=== PATIENT | female | born 1965 | race Caucasian/White ===

== ENCOUNTER 2020-09-09 14:38 | Inpatient (IN) | payer MEDICARE, MEDICAID ==
[~2020-09-09] VITALS: Ht 175.3 cm; Wt 95.3 kg
[2020-09-09] MEDS ORDERED: IPRATROPIUM BROMIDE (0.02%) 0.5MG/2.5ML NEB HHN STA (14:57)
[2020-09-09] MEDS ORDERED: METHYLPREDNISOLONE SOD SUCC 125 MG/2 ML VIAL IV STA (14:57)
[2020-09-09] MEDS: ALBUTEROL (0.083%) 2.5MG/3ML NEB HHN SCH ×3 (15:14→16:28)
[2020-09-09 15:26] LABS: BASOPHILS % 1.2 % (0.0-2.0); EOSINOPHILS % 5.2 % (0.0-5.0); HEMATOCRIT. 37.6 % (36.0-48.0); HEMOGLOBIN. 12.4 g/dL (12.0-16.0); LYMPHOCYTES % 49.9 % (20.0-50.0); MEAN CORPUSCULAR HEMOGLOBIN 28.8 pg (28.0-32.0); MEAN CORPUSCULAR VOLUME 86.9 fL (81.0-99.0); MEAN PLATELET VOLUME 8.2 fl (7.4-10.4); MONOCYTES % 8.9 % (2.0-8.0); NEUTROPHILS % 34.8 % (40.0-76.0); PLATELET 212 x1000/uL (130-400); RED BLOOD CELL COUNT 4.32 mill/uL (4.2-5.4); RED CELL DISTRIBUTION WIDTH 17.6 % (11.6-14.6)
[2020-09-09 15:34] LABS: CHLORIDE 117 mEq/L (98-107)
[2020-09-09] MEDS ORDERED: CEFTRIAXONE 1 G PREMIX 50 ML IV ONE (16:15)
[2020-09-09] MEDS ORDERED: POTASSIUM CHLORIDE 20MEQ TABLET SR PO SCH (16:15)
[2020-09-09] MEDS ORDERED: AZITHROMYCIN 500 MG in DEXT 5% WATER 250 ML IV ONE (17:00)
[2020-09-09] MEDS ORDERED: MAGNESIUM/ALUMINUM HYDROXIDE/SIMETHICONE 30ML UDC PO PRN (17:15)
[2020-09-09] MEDS ORDERED: DOCUSATE SODIUM 100MG CAPSULE PO PRN (17:15)
[2020-09-09] MEDS ORDERED: ACETAMINOPHEN 325MG TABLET PO PRN ×2 (17:15)
[2020-09-09] MEDS ORDERED: CLONIDINE 0.1MG TABLET PO PRN (17:15)
[2020-09-09] MEDS ORDERED: IPRATROPIUM/ALBUTEROL 0.5-3(2.5)MG/3ML NEB NEB PRN (17:15)
[2020-09-09] MEDS ORDERED: NITROGLYCERIN 0.4MG TABLET SL SL PRN (17:15)
[2020-09-09] MEDS ORDERED: DEXTROSE 50% WATER 50ML SYRINGE IV PRN (17:15)
[2020-09-09] MEDS ORDERED: GUAIFENESIN 200MG/10ML SUGAR FREE UDC PO PRN (17:15)
[2020-09-09] MEDS ORDERED: ONDANSETRON HCL 4MG/2ML INJ IV PRN (17:15)
[2020-09-09] MEDS ORDERED: POTASSIUM CHLORIDE 20MEQ TABLET SR PO NR (17:32)
[2020-09-09] MEDS: INSULIN LISPRO 100 UNITS/ML SUBCUT SCH ×2 (17:50→21:00)
[2020-09-09] MEDS: BLOOD SUGAR DIAGNOSTIC STRIP TEST SCH ×2 (17:50→20:58)
[2020-09-09] MEDS: GUAIFENESIN/DM 600MG/30MG ER TAB 12HR PO SCH (17:59)
[2020-09-09 18:00] LABS: T4 FREE 0.87 ng/dL (0.76-1.46)
[2020-09-09] MEDS: ENOXAPARIN 40MG/0.4ML SYR SUBCUT SCH (18:00)
[2020-09-09 18:27] LABS: VITAMIN B12 SERUM 235 pg/mL (211-911)
[2020-09-09] MEDS: DILTIAZEM HCL 60MG TABLET PO SCH (18:39)
[2020-09-09 19:51] LABS: *COCAINE SCREEN URINE NEGATIVE (NEGATIVE); METHADONE URINE SCREEN NEGATIVE (NEGATIVE); OPIATES URINE SCREEN NEGATIVE (NEGATIVE)
[2020-09-09 19:52] LABS: *AMPHETAMINES SCREEN URINE NEGATIVE (NEGATIVE); *BARBITURATES SCREEN URINE NEGATIVE (NEGATIVE); *BENZODIAZEPINES SCREEN URINE NEGATIVE (NEGATIVE); CANNABINOID URINE SCREEN NEGATIVE (NEGATIVE); PHENCYCLIDINE URINE SCREEN NEGATIVE (NEGATIVE)
[2020-09-09 19:53] LABS: D-DIMER 0.63 mg/L FEU (<0.50); INR 1.1; PROTHROMBIN TIME 11.4 sec (9.6-11.0)
[2020-09-09] MEDS ORDERED: ZOLPIDEM TARTRATE 5MG TABLET PO PRN (20:00)
[2020-09-09] MEDS: KETOROLAC 15MG/ML VIAL IV PRN (20:57)
[2020-09-09] MEDS: FAMOTIDINE 20MG TABLET PO SCH (20:58)
[2020-09-09] MEDS: ASCORBIC ACID 500 MG TABLET PO SCH (20:58)
[2020-09-09 22:00] VITALS: BP 134/92
[2020-09-10] VITALS: BP 130/89
[2020-09-10 00:44] LABS: CREATINE KINASE 54 IU/L (26-192)
[2020-09-10 00:45] LABS: CREATINE KINASE MB FRACTION 1.4 ng/mL (0.5-3.6)
[2020-09-10] MEDS: DILTIAZEM HCL 60MG TABLET PO SCH ×3 (00:48→19:06)
[2020-09-10] MEDS: IPRATROPIUM/ALBUTEROL 0.5-3(2.5)MG/3ML NEB HHN SCH ×6 (01:13→21:20)
[2020-09-10 04:00] VITALS: BP 133/83
[2020-09-10] MEDS: BLOOD SUGAR DIAGNOSTIC STRIP TEST SCH ×4 (05:56→21:00)
[2020-09-10] MEDS: INSULIN LISPRO 100 UNITS/ML SUBCUT SCH ×4 (05:56→21:00)
[2020-09-10] MEDS: GUAIFENESIN/DM 600MG/30MG ER TAB 12HR PO SCH ×2 (06:09→18:51)
[2020-09-10 07:51] LABS: BASOPHILS % 0.3 % (0.0-2.0); HEMATOCRIT. 35.5 % (36.0-48.0); HEMOGLOBIN. 11.9 g/dL (12.0-16.0); LYMPHOCYTES % 13.7 % (20.0-50.0); MEAN CORPUSCULAR HEMOGLOBIN 29.2 pg (28.0-32.0); MEAN CORPUSCULAR VOLUME 86.8 fL (81.0-99.0); MEAN PLATELET VOLUME 8.2 fl (7.4-10.4); MONOCYTES % 8.3 % (2.0-8.0); NEUTROPHILS % 77.7 % (40.0-76.0); PLATELET 191 x1000/uL (130-400); RED BLOOD CELL COUNT 4.09 mill/uL (4.2-5.4)
[2020-09-10 07:57] LABS: CHLORIDE 114 mEq/L (98-107)
[2020-09-10 08:00] VITALS: BP 130/82
[2020-09-10 08:08] LABS: CREATINE KINASE 46 IU/L (26-192)
[2020-09-10 08:16] LABS: CREATINE KINASE MB FRACTION < 1.0 ng/mL (0.5-3.6)
[2020-09-10] MEDS: ZINC SULFATE 220 MG ( 50 ) CAPSULE PO SCH (10:02)
[2020-09-10] MEDS: CHOLECALCIFEROL (D3) 1000 UNIT TABLET PO SCH (10:02)
[2020-09-10] MEDS: ASPIRIN 325MG EC TABLET PO SCH (10:03)
[2020-09-10] MEDS: ASCORBIC ACID 500 MG TABLET PO SCH ×2 (10:03→22:07)
[2020-09-10] MEDS: FAMOTIDINE 20MG TABLET PO SCH ×2 (10:03→22:07)
[2020-09-10] MEDS: KETOROLAC 15MG/ML VIAL IV PRN (10:34)
[2020-09-10] MEDS ORDERED: IPRATROPIUM/ALBUTEROL 0.5-3(2.5)MG/3ML NEB NEB PRN (11:00)
[2020-09-10 12:00] VITALS: BP 124/80
[2020-09-10] MEDS ORDERED: PNEUMOCOCCAL 23-VAL P-SAC VAC 0.5 ML IM ONE (12:00)
[2020-09-10] MEDS: BUDESONIDE 0.5MG/2ML NEB HHN SCH ×2 (12:04→21:20)
[2020-09-10] MEDS ORDERED: MAGNESIUM 2 G PREMIX 50 ML IV NR (13:00)
[2020-09-10] MEDS ORDERED: CEFTRIAXONE 1,000 MG in DEXTROSE 5% WATER 50 ML IV SCH ×2 (13:00→16:00)
[2020-09-10] MEDS ORDERED: AZITHROMYCIN 500 MG in DEXT 5% WATER 250 ML IV SCH ×2 (14:00→17:00)
[2020-09-10 16:00] VITALS: BP 110/75
[2020-09-10] MEDS: ENOXAPARIN 40MG/0.4ML SYR SUBCUT SCH (18:51)
[2020-09-10] MEDS: FUROSEMIDE 40MG TABLET PO SCH (18:51)
[2020-09-10 20:00] VITALS: BP 128/80
[2020-09-11] VITALS: BP 138/81
[2020-09-11] MEDS: DILTIAZEM HCL 60MG TABLET PO SCH ×4 (00:30→18:00)
[2020-09-11] MEDS: IPRATROPIUM/ALBUTEROL 0.5-3(2.5)MG/3ML NEB HHN SCH ×6 (01:12→20:49)
[2020-09-11 04:00] VITALS: BP 129/68
[2020-09-11] MEDS: INSULIN LISPRO 100 UNITS/ML SUBCUT SCH ×4 (06:06→20:19)
[2020-09-11] MEDS: BLOOD SUGAR DIAGNOSTIC STRIP TEST SCH ×4 (06:06→20:19)
[2020-09-11] MEDS: GUAIFENESIN/DM 600MG/30MG ER TAB 12HR PO SCH ×2 (06:09→17:59)
[2020-09-11] MEDS: FUROSEMIDE 40MG TABLET PO SCH ×2 (06:09→17:59)
[2020-09-11] MEDS ORDERED: FURO80TA3 MT (06:24)
[2020-09-11] MEDS ORDERED: SPIR100T5 MT (06:24)
[2020-09-11] MEDS ORDERED: LEVO50TA8 MT (06:24)
[2020-09-11] MEDS ORDERED: LACT10SO6 MT (06:24)
[2020-09-11] MEDS ORDERED: GABA-532 MT (06:24)
[2020-09-11] MEDS ORDERED: APIX5TAB MT (06:24)
[2020-09-11] MEDS ORDERED: MIDO10TA MT (06:24)
[2020-09-11] MEDS ORDERED: PANT40TA51 MT (06:24)
[2020-09-11] MEDS ORDERED: DULO60CA64 MT (06:24)
[2020-09-11] MEDS ORDERED: OXYB5TAB17 PO (06:35)
[2020-09-11] MEDS ORDERED: CYCL5TAB MT (06:35)
[2020-09-11] MEDS ORDERED: TRAM50TA3 MT (06:35)
[2020-09-11] MEDS ORDERED: DOCU100C57 PO (06:35)
[2020-09-11] MEDS ORDERED: ONDA4TAB50 MT (06:35)
[2020-09-11] MEDS ORDERED: HYDR-4009 MT (06:35)
[2020-09-11] MEDS ORDERED: CHOL100044 (06:35)
[2020-09-11] MEDS ORDERED: POTA20TA82 MT (06:35)
[2020-09-11] MEDS ORDERED: MULT-1203 MT (06:35)
[2020-09-11] MEDS ORDERED: RIFA550T MT (06:35)
[2020-09-11] MEDS ORDERED: MAGN200T4 MT (06:35)
[2020-09-11] MEDS ORDERED: SUMA25TA9 PO (06:35)
[2020-09-11 08:00] VITALS: BP 114/74
[2020-09-11] MEDS: ASPIRIN 325MG EC TABLET PO SCH (08:44)
[2020-09-11] MEDS: ASCORBIC ACID 500 MG TABLET PO SCH ×2 (08:44→20:19)
[2020-09-11] MEDS: CHOLECALCIFEROL (D3) 1000 UNIT TABLET PO SCH (08:45)
[2020-09-11] MEDS: FAMOTIDINE 20MG TABLET PO SCH ×2 (08:45→20:19)
[2020-09-11] MEDS: ZINC SULFATE 220 MG ( 50 ) CAPSULE PO SCH (08:45)
[2020-09-11] MEDS: BUDESONIDE 0.5MG/2ML NEB HHN SCH ×2 (09:32→20:49)
[2020-09-11 12:00] VITALS: BP 126/62
[2020-09-11] MEDS: KETOROLAC 15MG/ML VIAL IV PRN (12:24)
[2020-09-11] MEDS: METHYLPREDNISOLONE SOD SUCC 40 MG/ML VIAL IV SCH ×2 (12:31→20:19)
[2020-09-11] MEDS ORDERED: CEFTRIAXONE 1,000 MG in DEXTROSE 5% WATER 50 ML IV SCH (13:00)
[2020-09-11] MEDS ORDERED: AZITHROMYCIN 500MG in DEXTROSE 5% WATER 250ML IV SCH (14:00)
[2020-09-11 16:00] VITALS: BP 108/61
[2020-09-11] MEDS: ENOXAPARIN 40MG/0.4ML SYR SUBCUT SCH (17:59)
[2020-09-12] VITALS: BP 137/59
[2020-09-12] MEDS: DILTIAZEM HCL 60MG TABLET PO SCH ×2 (00:57→06:29)
[2020-09-12] MEDS: IPRATROPIUM/ALBUTEROL 0.5-3(2.5)MG/3ML NEB HHN SCH ×3 (01:02→08:57)
[2020-09-12 04:00] VITALS: BP 121/58
[2020-09-12] MEDS: FUROSEMIDE 40MG TABLET PO SCH (06:28)
[2020-09-12] MEDS: GUAIFENESIN/DM 600MG/30MG ER TAB 12HR PO SCH (06:28)
[2020-09-12] MEDS: BLOOD SUGAR DIAGNOSTIC STRIP TEST SCH (06:33)
[2020-09-12] MEDS: INSULIN LISPRO 100 UNITS/ML SUBCUT SCH (06:33)
[2020-09-12 07:53] VITALS: BP 125/67
[2020-09-12] MEDS: KETOROLAC 15MG/ML VIAL IV PRN (07:58)
[2020-09-12] MEDS: ASPIRIN 325MG EC TABLET PO SCH (08:37)
[2020-09-12] MEDS: CHOLECALCIFEROL (D3) 1000 UNIT TABLET PO SCH (08:37)
[2020-09-12] MEDS: ASCORBIC ACID 500 MG TABLET PO SCH (08:37)
[2020-09-12] MEDS: ZINC SULFATE 220 MG ( 50 ) CAPSULE PO SCH (08:37)
[2020-09-12] MEDS: METHYLPREDNISOLONE SOD SUCC 40 MG/ML VIAL IV SCH (08:37)
[2020-09-12] MEDS: FAMOTIDINE 20MG TABLET PO SCH (08:37)
[2020-09-12] MEDS: BUDESONIDE 0.5MG/2ML NEB HHN SCH (08:57)
[2020-09-12 10:37] VITALS: BP 141/78
== END 2020-09-12 13:15 | disposition home or self-care (01) | DRG 193 ==
LOC: EDSEX 14:38 → ER 14:38 → EDBEDREQ 16:23 → EDBEDREQTM 16:23 → 8WST 17:12 → SUPCPDRO 17:12 → EDBEDREQ 17:21 → ENRESERV 21:20
PROVIDERS: ADMIT Internal Medicine; ATTEND Internal Medicine
DX: J18.9 Pneumonia, unspecified organism (principal); J96.20 Acute and chronic respiratory failure, unspecified whether with hypoxia or hypercapnia; J44.1 Chronic obstructive pulmonary disease with (acute) exacerbation; E87.1 Hypo-osmolality and hyponatremia; E44.0 Moderate protein-calorie malnutrition; I50.42 Chronic combined systolic (congestive) and diastolic (congestive) heart failure; J44.0 Chronic obstructive pulmonary disease with (acute) lower respiratory infection; I11.0 Hypertensive heart disease with heart failure; E87.6 Hypokalemia; M06.9 Rheumatoid arthritis, unspecified; M19.90 Unspecified osteoarthritis, unspecified site; Z99.81 Dependence on supplemental oxygen; K70.30 Alcoholic cirrhosis of liver without ascites; E11.9 Type 2 diabetes mellitus without complications; Z86.16 Personal history of COVID-19; F10.21 Alcohol dependence, in remission; E83.42 Hypomagnesemia; Z87.891 Personal history of nicotine dependence; Z86.73 Personal history of transient ischemic attack (TIA), and cerebral infarction without residual deficits; Z98.84 Bariatric surgery status; Z68.31 Body mass index [BMI] 31.0-31.9, adult
CPT/HCPCS: 36415; 71045; 80053; 80305; 80320; 82550; 82553; 82607; 82962; 83036; 83540; 83550; 83735; 83880; 84145; 84439; 84443; 84484; 85025; 85379; 93005; 93306; 93970; 94640; 99285; C1893; J0456; J0696; J1650; J1885; J2920; J2930; J3475; J7060; J7626; G0480

== ENCOUNTER 2020-11-21 14:35 | Inpatient (IN) | payer MEDICARE, MEDICAID ==
[~2020-11-21] VITALS: Ht 175.3 cm; Wt 93.9 kg
[~2020-11-21 14:35] MED LIST: APIX5TAB MT; CHOL100044; CYCL5TAB MT; DOCU100C57 PO; DULO60CA64 MT; FERR236T3 PO; FOLI0.8C PO; FURO80TA3 MT; GABA-532 MT; HYDR-4009 MT; LACT10SO6 MT; LEVO50TA8 MT; MAGN200T4 MT; MIDO10TA MT; MULT-1203 MT; ONDA4TAB50 MT; OXYB5TAB17 PO; PANT40TA51 MT; POTA20TA82 MT; RIFA550T MT; SPIR100T5 MT; SUMA25TA9 PO; TRAM50TA3 MT
[2020-11-21] MEDS ORDERED: BENZONATATE 100MG CAPSULE PO PRN (15:45)
[2020-11-21] MEDS ORDERED: CEFAZOLIN 1000MG PREMIX 50 ML IV SCH ×2 (15:45→17:00)
[2020-11-21] MEDS ORDERED: HYDROCODONE/ACETAMINOPHEN 10/325MG TABLET PO PRN (15:45)
[2020-11-21] MEDS ORDERED: ACETAMINOPHEN 325MG TABLET PO PRN (15:45)
[2020-11-21] MEDS ORDERED: FAMOTIDINE 20MG TABLET PO SCH (17:00)
[2020-11-21 17:33] VITALS: BP 95/59
[2020-11-21] MEDS ORDERED: ACETAMINOPHEN 325MG TABLET PO ONE (18:00)
[2020-11-21] MEDS: FAMOTIDINE 20MG TABLET PO SCH (18:34)
[2020-11-21 18:38] VITALS: BP 95/59
[2020-11-21 20:00] VITALS: BP 119/56
[2020-11-21] MEDS ORDERED: METOPROLOL TARTRATE 25MG TABLET PO SCH (21:00)
[2020-11-21] MEDS ORDERED: ENOXAPARIN 100MG/ML SYR SUBCUT SCH (21:00)
[2020-11-21] MEDS: METOPROLOL TARTRATE 25MG TABLET PO SCH (21:00)
[2020-11-21] MEDS ORDERED: POTASSIUM CHLORIDE 20MEQ TABLET SR PO SCH (21:00)
[2020-11-21] MEDS ORDERED: NYSTATIN POWDER 15GM TOP SCH (21:00)
[2020-11-21] MEDS: NYSTATIN POWDER 15GM TOP SCH (21:57)
[2020-11-21] MEDS: LACTULOSE 20G/30ML UDC PO SCH (21:58)
[2020-11-21] MEDS ORDERED: LACTULOSE 20G/30ML UDC PO SCH (22:00)
[2020-11-21] MEDS: ENOXAPARIN 100MG/ML SYR SUBCUT SCH (22:00)
[2020-11-21] MEDS ORDERED: GABAPENTIN 300MG CAPSULE PO SCH (22:00)
[2020-11-21] MEDS ORDERED: CYCLOBENZAPRINE 10MG TABLET PO SCH (22:00)
[2020-11-21] MEDS: GABAPENTIN 300MG CAPSULE PO SCH (22:01)
[2020-11-21] MEDS: CYCLOBENZAPRINE 10MG TABLET PO SCH (22:01)
[2020-11-21] MEDS: POTASSIUM CHLORIDE 20MEQ TABLET SR PO SCH (22:02)
[2020-11-22] MEDS: LACTULOSE 20G/30ML UDC PO SCH ×3 (06:00→22:00)
[2020-11-22] MEDS: LEVOTHYROXINE SODIUM 50MCG TABLET PO SCH (06:07)
[2020-11-22] MEDS: HYDROCODONE/ACETAMINOPHEN 10/325MG TABLET PO PRN ×3 (06:07→19:08)
[2020-11-22] MEDS: GABAPENTIN 300MG CAPSULE PO SCH ×3 (06:07→21:34)
[2020-11-22] MEDS: CYCLOBENZAPRINE 10MG TABLET PO SCH ×3 (06:07→21:34)
[2020-11-22] MEDS: FAMOTIDINE 20MG TABLET PO SCH ×2 (06:08→16:57)
[2020-11-22] MEDS ORDERED: LEVOTHYROXINE SODIUM 50MCG TABLET PO SCH (07:00)
[2020-11-22 07:59] VITALS: BP 121/70
[2020-11-22] MEDS: FOLIC ACID/VITAMIN B COMP W-C TABLET PO SCH (08:14)
[2020-11-22] MEDS: METOPROLOL TARTRATE 25MG TABLET PO SCH ×2 (08:15→21:00)
[2020-11-22] MEDS: SPIRONOLACTONE 50MG TABLET PO SCH (08:15)
[2020-11-22] MEDS: CHOLECALCIFEROL (D3) 1000 UNIT TABLET PO SCH (08:15)
[2020-11-22] MEDS: OXYBUTYNIN CHLORIDE 5MG TABLET PO SCH (08:15)
[2020-11-22] MEDS: MAGNESIUM OXIDE 400MG TABLET PO SCH (08:15)
[2020-11-22] MEDS: POTASSIUM CHLORIDE 20MEQ TABLET SR PO SCH ×2 (08:16→21:34)
[2020-11-22] MEDS: DULOXETINE HCL 60MG DR CAPSULE PO SCH (08:16)
[2020-11-22] MEDS: FERROUS SULFATE 325MG TABLET PO SCH (08:16)
[2020-11-22] MEDS: ENOXAPARIN 100MG/ML SYR SUBCUT SCH ×2 (08:17→21:36)
[2020-11-22] MEDS: NYSTATIN POWDER 15GM TOP SCH ×2 (08:18→21:36)
[2020-11-22] MEDS ORDERED: CHOLECALCIFEROL (D3) 1000 UNIT TABLET PO SCH (09:00)
[2020-11-22] MEDS ORDERED: SPIRONOLACTONE 50MG TABLET PO SCH (09:00)
[2020-11-22] MEDS ORDERED: FOLIC ACID/VITAMIN B COMP W-C TABLET PO SCH (09:00)
[2020-11-22] MEDS ORDERED: FERROUS SULFATE 325MG TABLET PO SCH (09:00)
[2020-11-22] MEDS ORDERED: OXYBUTYNIN CHLORIDE 5MG TABLET PO SCH (09:00)
[2020-11-22] MEDS ORDERED: DULOXETINE HCL 60MG DR CAPSULE PO SCH (09:00)
[2020-11-22] MEDS ORDERED: MAGNESIUM OXIDE 400MG TABLET PO SCH (09:00)
[2020-11-22] MEDS: DOCUSATE SODIUM 100MG CAPSULE PO SCH (16:57)
[2020-11-22] MEDS ORDERED: DOCUSATE SODIUM 100MG CAPSULE PO SCH (18:00)
[2020-11-22 20:00] VITALS: BP 108/62
[2020-11-23] MEDS: LACTULOSE 20G/30ML UDC PO SCH ×3 (05:17→22:00)
[2020-11-23] MEDS: GABAPENTIN 300MG CAPSULE PO SCH ×3 (06:12→21:56)
[2020-11-23] MEDS: LEVOTHYROXINE SODIUM 50MCG TABLET PO SCH (06:12)
[2020-11-23] MEDS: FAMOTIDINE 20MG TABLET PO SCH ×2 (06:12→18:17)
[2020-11-23] MEDS: CYCLOBENZAPRINE 10MG TABLET PO SCH ×3 (06:13→21:56)
[2020-11-23] MEDS: HYDROCODONE/ACETAMINOPHEN 10/325MG TABLET PO PRN ×2 (06:14→11:49)
[2020-11-23 06:36] LABS: CHLORIDE 100 mEq/L (98-107)
[2020-11-23 06:44] LABS: BASOPHILS % 1.1 % (0.0-2.0); EOSINOPHILS % 4.2 % (0.0-5.0); HEMATOCRIT. 38.8 % (36.0-48.0); HEMOGLOBIN. 13.1 g/dL (12.0-16.0); LYMPHOCYTES % 25.4 % (20.0-50.0); MEAN CORPUSCULAR HEMOGLOBIN 31.4 pg (28.0-32.0); MEAN PLATELET VOLUME 8.6 fl (7.4-10.4); MONOCYTES % 13.7 % (2.0-8.0); NEUTROPHILS % 55.6 % (40.0-76.0); PLATELET 357 x1000/uL (130-400); RED BLOOD CELL COUNT 4.17 mill/uL (4.2-5.4); RED CELL DISTRIBUTION WIDTH 15.3 % (11.6-14.6)
[2020-11-23 08:23] VITALS: BP 109/54
[2020-11-23] MEDS: FOLIC ACID/VITAMIN B COMP W-C TABLET PO SCH (08:50)
[2020-11-23] MEDS: CHOLECALCIFEROL (D3) 1000 UNIT TABLET PO SCH (08:50)
[2020-11-23] MEDS: FERROUS SULFATE 325MG TABLET PO SCH (08:50)
[2020-11-23] MEDS: MAGNESIUM OXIDE 400MG TABLET PO SCH (08:51)
[2020-11-23] MEDS: POTASSIUM CHLORIDE 20MEQ TABLET SR PO SCH (08:51)
[2020-11-23] MEDS: DULOXETINE HCL 60MG DR CAPSULE PO SCH (08:53)
[2020-11-23] MEDS: SPIRONOLACTONE 50MG TABLET PO SCH (08:56)
[2020-11-23] MEDS: OXYBUTYNIN CHLORIDE 5MG TABLET PO SCH (08:56)
[2020-11-23] MEDS: ENOXAPARIN 100MG/ML SYR SUBCUT SCH ×2 (08:57→21:56)
[2020-11-23] MEDS: METOPROLOL TARTRATE 25MG TABLET PO SCH ×2 (09:00→21:00)
[2020-11-23] MEDS: NYSTATIN POWDER 15GM TOP SCH ×2 (14:25→21:56)
[2020-11-23] MEDS: DOCUSATE SODIUM 100MG CAPSULE PO SCH (18:17)
[2020-11-23 20:00] VITALS: BP 98/65
[2020-11-24] MEDS: LACTULOSE 20G/30ML UDC PO SCH (06:00)
[2020-11-24] MEDS: LEVOTHYROXINE SODIUM 50MCG TABLET PO SCH (06:06)
[2020-11-24] MEDS: GABAPENTIN 300MG CAPSULE PO SCH ×3 (06:08→21:13)
[2020-11-24] MEDS: HYDROCODONE/ACETAMINOPHEN 10/325MG TABLET PO PRN ×3 (06:08→15:33)
[2020-11-24] MEDS: FAMOTIDINE 20MG TABLET PO SCH ×2 (06:08→17:19)
[2020-11-24] MEDS: CYCLOBENZAPRINE 10MG TABLET PO SCH ×3 (06:08→21:13)
[2020-11-24 06:22] LABS: CHLORIDE 99 mEq/L (98-107)
[2020-11-24 06:47] LABS: BASOPHILS % 1.1 % (0.0-2.0); EOSINOPHILS % 4.8 % (0.0-5.0); HEMATOCRIT. 37.5 % (36.0-48.0); HEMOGLOBIN. 12.5 g/dL (12.0-16.0); LYMPHOCYTES % 30.5 % (20.0-50.0); MEAN CORPUSCULAR HEMOGLOBIN 30.7 pg (28.0-32.0); MEAN CORPUSCULAR VOLUME 92.4 fL (81.0-99.0); MONOCYTES % 9.8 % (2.0-8.0); NEUTROPHILS % 53.8 % (40.0-76.0); PLATELET 391 x1000/uL (130-400); RED BLOOD CELL COUNT 4.06 mill/uL (4.2-5.4); RED CELL DISTRIBUTION WIDTH 15.2 % (11.6-14.6)
[2020-11-24 07:52] VITALS: BP 104/59
[2020-11-24] MEDS: FOLIC ACID/VITAMIN B COMP W-C TABLET PO SCH (08:21)
[2020-11-24] MEDS: FERROUS SULFATE 325MG TABLET PO SCH (08:21)
[2020-11-24] MEDS: CHOLECALCIFEROL (D3) 1000 UNIT TABLET PO SCH (08:21)
[2020-11-24] MEDS: MAGNESIUM OXIDE 400MG TABLET PO SCH (08:22)
[2020-11-24] MEDS: OXYBUTYNIN CHLORIDE 5MG TABLET PO SCH (08:22)
[2020-11-24] MEDS: DULOXETINE HCL 60MG DR CAPSULE PO SCH (08:22)
[2020-11-24] MEDS: METOPROLOL TARTRATE 25MG TABLET PO SCH ×2 (08:22→21:00)
[2020-11-24] MEDS: ENOXAPARIN 100MG/ML SYR SUBCUT SCH ×2 (08:23→21:16)
[2020-11-24] MEDS: NYSTATIN POWDER 15GM TOP SCH ×2 (09:00→21:13)
[2020-11-24] MEDS: SPIRONOLACTONE 25MG TABLET PO SCH (10:54)
[2020-11-24] MEDS ORDERED: LACTULOSE 20G/30ML UDC PO PRN (13:15)
[2020-11-24] MEDS: DOCUSATE SODIUM 100MG CAPSULE PO SCH (17:20)
[2020-11-24 20:00] VITALS: BP 108/71
[2020-11-25 06:24] LABS: BASOPHILS % 1.3 % (0.0-2.0); EOSINOPHILS % 5.8 % (0.0-5.0); LYMPHOCYTES % 30.8 % (20.0-50.0); MEAN CORPUSCULAR HEMOGLOBIN 31.6 pg (28.0-32.0); MEAN CORPUSCULAR VOLUME 91.9 fL (81.0-99.0); MEAN PLATELET VOLUME 8.6 fl (7.4-10.4); MONOCYTES % 10.8 % (2.0-8.0); NEUTROPHILS % 51.3 % (40.0-76.0); PLATELET 384 x1000/uL (130-400); RED BLOOD CELL COUNT 3.81 mill/uL (4.2-5.4); RED CELL DISTRIBUTION WIDTH 15.4 % (11.6-14.6)
[2020-11-25] MEDS: FAMOTIDINE 20MG TABLET PO SCH ×2 (06:38→17:23)
[2020-11-25] MEDS: GABAPENTIN 300MG CAPSULE PO SCH ×3 (06:38→20:55)
[2020-11-25] MEDS: LEVOTHYROXINE SODIUM 50MCG TABLET PO SCH (06:38)
[2020-11-25] MEDS: CYCLOBENZAPRINE 10MG TABLET PO SCH ×3 (06:38→20:55)
[2020-11-25 06:57] LABS: CHLORIDE 101 mEq/L (98-107)
[2020-11-25 08:00] VITALS: BP 110/70
[2020-11-25] MEDS: MAGNESIUM OXIDE 400MG TABLET PO SCH (08:50)
[2020-11-25] MEDS: FOLIC ACID/VITAMIN B COMP W-C TABLET PO SCH (08:50)
[2020-11-25] MEDS: CHOLECALCIFEROL (D3) 1000 UNIT TABLET PO SCH (08:50)
[2020-11-25] MEDS: DULOXETINE HCL 60MG DR CAPSULE PO SCH (08:50)
[2020-11-25] MEDS: METOPROLOL TARTRATE 25MG TABLET PO SCH (08:50)
[2020-11-25] MEDS: SPIRONOLACTONE 25MG TABLET PO SCH (08:51)
[2020-11-25] MEDS: OXYBUTYNIN CHLORIDE 5MG TABLET PO SCH (08:51)
[2020-11-25] MEDS: ENOXAPARIN 100MG/ML SYR SUBCUT SCH ×2 (08:53→20:56)
[2020-11-25] MEDS: HYDROCODONE/ACETAMINOPHEN 10/325MG TABLET PO PRN (08:53)
[2020-11-25] MEDS: FERROUS SULFATE 325MG TABLET PO SCH (08:53)
[2020-11-25] MEDS: NYSTATIN POWDER 15GM TOP SCH ×2 (09:59→20:55)
[2020-11-25] MEDS ORDERED: FLUDROCORTISONE ACETATE 0.1MG TABLET PO NR (11:00)
[2020-11-25 12:00] VITALS: BP 108/72
[2020-11-25 13:40] VITALS: BP 99/67
[2020-11-25] MEDS: MIDODRINE HCL 2.5MG TABLET PO SCH ×2 (14:15→17:23)
[2020-11-25 17:00] VITALS: BP 105/67
[2020-11-25] MEDS: DOCUSATE SODIUM 100MG CAPSULE PO SCH (17:23)
[2020-11-25 20:00] VITALS: BP 102/59
[2020-11-26] MEDS: CYCLOBENZAPRINE 10MG TABLET PO SCH (05:53)
[2020-11-26] MEDS: GABAPENTIN 300MG CAPSULE PO SCH ×3 (05:53→20:58)
[2020-11-26] MEDS: LEVOTHYROXINE SODIUM 50MCG TABLET PO SCH (05:57)
[2020-11-26] MEDS: FAMOTIDINE 20MG TABLET PO SCH ×2 (05:57→16:33)
[2020-11-26] MEDS: HYDROCODONE/ACETAMINOPHEN 10/325MG TABLET PO PRN ×3 (05:58→21:52)
[2020-11-26 07:47] VITALS: BP 111/60
[2020-11-26] MEDS: CHOLECALCIFEROL (D3) 1000 UNIT TABLET PO SCH (08:51)
[2020-11-26] MEDS: DULOXETINE HCL 60MG DR CAPSULE PO SCH (08:51)
[2020-11-26] MEDS: OXYBUTYNIN CHLORIDE 5MG TABLET PO SCH (08:51)
[2020-11-26] MEDS: MAGNESIUM OXIDE 400MG TABLET PO SCH (08:52)
[2020-11-26] MEDS: FERROUS SULFATE 325MG TABLET PO SCH (08:52)
[2020-11-26] MEDS: MIDODRINE HCL 2.5MG TABLET PO SCH (08:52)
[2020-11-26] MEDS: FOLIC ACID/VITAMIN B COMP W-C TABLET PO SCH (08:52)
[2020-11-26] MEDS: ENOXAPARIN 100MG/ML SYR SUBCUT SCH ×2 (08:53→20:58)
[2020-11-26] MEDS: NYSTATIN POWDER 15GM TOP SCH ×2 (08:54→20:58)
[2020-11-26 13:36] VITALS: BP 111/74
[2020-11-26 13:40] VITALS: BP_SYST 65; BP_SYST 95; BP_DIAS 67
[2020-11-26] MEDS: MIDODRINE HCL 5MG TABLET PO SCH ×2 (13:40→16:33)
[2020-11-26 14:56] VITALS: BP 91/47
[2020-11-26 16:32] VITALS: BP 114/78
[2020-11-26] MEDS: DOCUSATE SODIUM 100MG CAPSULE PO SCH (17:09)
[2020-11-26 20:00] VITALS: BP 105/70
[2020-11-27] MEDS: LEVOTHYROXINE SODIUM 50MCG TABLET PO SCH (05:46)
[2020-11-27] MEDS: FAMOTIDINE 20MG TABLET PO SCH ×2 (05:47→17:03)
[2020-11-27] MEDS: GABAPENTIN 300MG CAPSULE PO SCH ×3 (05:47→21:27)
[2020-11-27 08:04] VITALS: BP 121/79
[2020-11-27] MEDS: NYSTATIN POWDER 15GM TOP SCH ×2 (09:39→21:00)
[2020-11-27] MEDS: DULOXETINE HCL 60MG DR CAPSULE PO SCH (09:41)
[2020-11-27] MEDS: ENOXAPARIN 100MG/ML SYR SUBCUT SCH ×2 (09:41→21:29)
[2020-11-27] MEDS: FERROUS SULFATE 325MG TABLET PO SCH (09:43)
[2020-11-27] MEDS: MAGNESIUM OXIDE 400MG TABLET PO SCH (09:43)
[2020-11-27] MEDS: FOLIC ACID/VITAMIN B COMP W-C TABLET PO SCH (09:43)
[2020-11-27] MEDS: OXYBUTYNIN CHLORIDE 5MG TABLET PO SCH (09:43)
[2020-11-27] MEDS: HYDROCODONE/ACETAMINOPHEN 10/325MG TABLET PO PRN ×2 (09:43→21:28)
[2020-11-27] MEDS: CHOLECALCIFEROL (D3) 1000 UNIT TABLET PO SCH (09:43)
[2020-11-27] MEDS: MIDODRINE HCL 5MG TABLET PO SCH ×3 (09:44→17:03)
[2020-11-27] MEDS: DOCUSATE SODIUM 100MG CAPSULE PO SCH (17:03)
[2020-11-27 20:00] VITALS: BP 113/72
[2020-11-28] MEDS: HYDROCODONE/ACETAMINOPHEN 10/325MG TABLET PO PRN ×2 (03:30→14:26)
[2020-11-28] MEDS: GABAPENTIN 300MG CAPSULE PO SCH ×3 (06:12→22:22)
[2020-11-28] MEDS: LEVOTHYROXINE SODIUM 50MCG TABLET PO SCH (06:12)
[2020-11-28] MEDS: FAMOTIDINE 20MG TABLET PO SCH ×2 (06:12→16:23)
[2020-11-28 08:16] VITALS: BP 98/63
[2020-11-28] MEDS: FOLIC ACID/VITAMIN B COMP W-C TABLET PO SCH (08:27)
[2020-11-28] MEDS: MAGNESIUM OXIDE 400MG TABLET PO SCH (08:28)
[2020-11-28] MEDS: MIDODRINE HCL 5MG TABLET PO SCH ×3 (08:28→16:23)
[2020-11-28] MEDS: DULOXETINE HCL 60MG DR CAPSULE PO SCH (08:28)
[2020-11-28] MEDS: FERROUS SULFATE 325MG TABLET PO SCH (08:28)
[2020-11-28] MEDS: CHOLECALCIFEROL (D3) 1000 UNIT TABLET PO SCH (08:28)
[2020-11-28] MEDS: OXYBUTYNIN CHLORIDE 5MG TABLET PO SCH (08:28)
[2020-11-28] MEDS: ENOXAPARIN 100MG/ML SYR SUBCUT SCH ×2 (08:34→22:22)
[2020-11-28] MEDS: NYSTATIN POWDER 15GM TOP SCH ×2 (09:14→22:22)
[2020-11-28] MEDS: DOCUSATE SODIUM 100MG CAPSULE PO SCH (18:13)
[2020-11-28 20:00] VITALS: BP 105/74
[2020-11-29] MEDS: LEVOTHYROXINE SODIUM 50MCG TABLET PO SCH (06:22)
[2020-11-29] MEDS: GABAPENTIN 300MG CAPSULE PO SCH ×3 (06:22→20:48)
[2020-11-29] MEDS: FAMOTIDINE 20MG TABLET PO SCH ×2 (06:22→17:07)
[2020-11-29 07:38] VITALS: BP 111/70
[2020-11-29] MEDS: DULOXETINE HCL 60MG DR CAPSULE PO SCH (09:16)
[2020-11-29] MEDS: NYSTATIN POWDER 15GM TOP SCH ×2 (09:16→20:48)
[2020-11-29] MEDS: FOLIC ACID/VITAMIN B COMP W-C TABLET PO SCH (09:17)
[2020-11-29] MEDS: ENOXAPARIN 100MG/ML SYR SUBCUT SCH ×2 (09:17→20:49)
[2020-11-29] MEDS: FERROUS SULFATE 325MG TABLET PO SCH (09:17)
[2020-11-29] MEDS: MAGNESIUM OXIDE 400MG TABLET PO SCH (09:17)
[2020-11-29] MEDS: MIDODRINE HCL 5MG TABLET PO SCH ×3 (09:17→17:07)
[2020-11-29] MEDS: OXYBUTYNIN CHLORIDE 5MG TABLET PO SCH (09:18)
[2020-11-29] MEDS: CHOLECALCIFEROL (D3) 1000 UNIT TABLET PO SCH (09:18)
[2020-11-29] MEDS: HYDROCODONE/ACETAMINOPHEN 10/325MG TABLET PO PRN (09:18)
[2020-11-29] MEDS: DOCUSATE SODIUM 100MG CAPSULE PO SCH (17:07)
[2020-11-29 20:00] VITALS: BP 111/70
[2020-11-30] MEDS: HYDROCODONE/ACETAMINOPHEN 10/325MG TABLET PO PRN ×4 (01:42→17:08)
[2020-11-30] MEDS: LEVOTHYROXINE SODIUM 50MCG TABLET PO SCH (06:06)
[2020-11-30] MEDS: GABAPENTIN 300MG CAPSULE PO SCH ×3 (06:06→21:59)
[2020-11-30] MEDS: FAMOTIDINE 20MG TABLET PO SCH ×2 (06:06→17:08)
[2020-11-30 07:01] LABS: BASOPHILS % 1.3 % (0.0-2.0); HEMATOCRIT. 35.8 % (36.0-48.0); HEMOGLOBIN. 12.1 g/dL (12.0-16.0); LYMPHOCYTES % 37.9 % (20.0-50.0); MEAN CORPUSCULAR HEMOGLOBIN 31.7 pg (28.0-32.0); MEAN PLATELET VOLUME 7.6 fl (7.4-10.4); MONOCYTES % 10.2 % (2.0-8.0); NEUTROPHILS % 43.6 % (40.0-76.0); PLATELET 518 x1000/uL (130-400); RED CELL DISTRIBUTION WIDTH 15.4 % (11.6-14.6)
[2020-11-30 07:20] LABS: CHLORIDE 107 mEq/L (98-107)
[2020-11-30] MEDS: ENOXAPARIN 100MG/ML SYR SUBCUT SCH ×2 (07:52→21:59)
[2020-11-30] MEDS: OXYBUTYNIN CHLORIDE 5MG TABLET PO SCH (07:52)
[2020-11-30] MEDS: CHOLECALCIFEROL (D3) 1000 UNIT TABLET PO SCH (07:52)
[2020-11-30] MEDS: MAGNESIUM OXIDE 400MG TABLET PO SCH (07:53)
[2020-11-30] MEDS: FERROUS SULFATE 325MG TABLET PO SCH (07:53)
[2020-11-30] MEDS: BENZONATATE 100MG CAPSULE PO PRN (07:53)
[2020-11-30] MEDS: MIDODRINE HCL 5MG TABLET PO SCH ×3 (07:53→16:58)
[2020-11-30] MEDS: FOLIC ACID/VITAMIN B COMP W-C TABLET PO SCH (07:54)
[2020-11-30] MEDS: DULOXETINE HCL 60MG DR CAPSULE PO SCH (07:54)
[2020-11-30 07:56] VITALS: BP 115/69
[2020-11-30] MEDS: NYSTATIN POWDER 15GM TOP SCH ×2 (07:59→22:00)
[2020-11-30] MEDS: DOCUSATE SODIUM 100MG CAPSULE PO SCH (17:08)
[2020-11-30 20:00] VITALS: BP 108/74
[2020-12-01] MEDS: GABAPENTIN 300MG CAPSULE PO SCH ×3 (06:21→23:16)
[2020-12-01] MEDS: LEVOTHYROXINE SODIUM 50MCG TABLET PO SCH (06:21)
[2020-12-01] MEDS: FAMOTIDINE 20MG TABLET PO SCH ×2 (06:21→16:10)
[2020-12-01 08:20] VITALS: BP 118/76
[2020-12-01] MEDS: BENZONATATE 100MG CAPSULE PO PRN (08:26)
[2020-12-01] MEDS: FOLIC ACID/VITAMIN B COMP W-C TABLET PO SCH (08:26)
[2020-12-01] MEDS: FERROUS SULFATE 325MG TABLET PO SCH (08:26)
[2020-12-01] MEDS: DOCUSATE SODIUM 100MG CAPSULE PO SCH (08:26)
[2020-12-01] MEDS: DULOXETINE HCL 60MG DR CAPSULE PO SCH (08:26)
[2020-12-01] MEDS: HYDROCODONE/ACETAMINOPHEN 10/325MG TABLET PO PRN ×2 (08:26→16:10)
[2020-12-01] MEDS: MAGNESIUM OXIDE 400MG TABLET PO SCH (08:26)
[2020-12-01] MEDS: CHOLECALCIFEROL (D3) 1000 UNIT TABLET PO SCH (08:26)
[2020-12-01] MEDS: OXYBUTYNIN CHLORIDE 5MG TABLET PO SCH (08:26)
[2020-12-01] MEDS: NYSTATIN POWDER 15GM TOP SCH ×2 (08:27→23:15)
[2020-12-01] MEDS: ENOXAPARIN 100MG/ML SYR SUBCUT SCH ×2 (08:27→23:15)
[2020-12-01] MEDS: MIDODRINE HCL 5MG TABLET PO SCH ×3 (09:00→16:10)
[2020-12-01 16:19] VITALS: BP 130/79
[2020-12-01 20:00] VITALS: BP 107/73
[2020-12-02] MEDS: GABAPENTIN 300MG CAPSULE PO SCH ×3 (06:29→21:18)
[2020-12-02] MEDS: LEVOTHYROXINE SODIUM 50MCG TABLET PO SCH (06:29)
[2020-12-02] MEDS: FAMOTIDINE 20MG TABLET PO SCH ×2 (06:29→17:43)
[2020-12-02 06:43] LABS: INR 1.1; PROTHROMBIN TIME 11.3 sec (9.6-11.0)
[2020-12-02 08:00] VITALS: BP 106/62
[2020-12-02] MEDS: FOLIC ACID/VITAMIN B COMP W-C TABLET PO SCH (08:33)
[2020-12-02] MEDS: OXYBUTYNIN CHLORIDE 5MG TABLET PO SCH (08:33)
[2020-12-02] MEDS: FERROUS SULFATE 325MG TABLET PO SCH (08:34)
[2020-12-02] MEDS: MAGNESIUM OXIDE 400MG TABLET PO SCH (08:34)
[2020-12-02] MEDS: DULOXETINE HCL 60MG DR CAPSULE PO SCH (08:34)
[2020-12-02] MEDS: CHOLECALCIFEROL (D3) 1000 UNIT TABLET PO SCH (08:34)
[2020-12-02] MEDS: ENOXAPARIN 100MG/ML SYR SUBCUT SCH ×2 (08:35→20:31)
[2020-12-02] MEDS: MIDODRINE HCL 5MG TABLET PO SCH ×3 (08:52→17:43)
[2020-12-02] MEDS: NYSTATIN POWDER 15GM TOP SCH ×2 (08:57→20:31)
[2020-12-02] MEDS: HYDROCODONE/ACETAMINOPHEN 10/325MG TABLET PO PRN (15:35)
[2020-12-02] MEDS: DOCUSATE SODIUM 100MG CAPSULE PO SCH (17:43)
[2020-12-02 20:00] VITALS: BP 118/71
[2020-12-03] MEDS: GABAPENTIN 300MG CAPSULE PO SCH ×3 (05:59→21:00)
[2020-12-03] MEDS: HYDROCODONE/ACETAMINOPHEN 10/325MG TABLET PO PRN ×2 (05:59→12:05)
[2020-12-03] MEDS: FAMOTIDINE 20MG TABLET PO SCH ×2 (06:00→16:38)
[2020-12-03] MEDS: LEVOTHYROXINE SODIUM 50MCG TABLET PO SCH (06:00)
[2020-12-03] MEDS: DULOXETINE HCL 60MG DR CAPSULE PO SCH (08:00)
[2020-12-03] MEDS: MAGNESIUM OXIDE 400MG TABLET PO SCH (08:00)
[2020-12-03] MEDS: OXYBUTYNIN CHLORIDE 5MG TABLET PO SCH (08:00)
[2020-12-03] MEDS: FOLIC ACID/VITAMIN B COMP W-C TABLET PO SCH (08:00)
[2020-12-03] MEDS: FERROUS SULFATE 325MG TABLET PO SCH (08:00)
[2020-12-03] MEDS: CHOLECALCIFEROL (D3) 1000 UNIT TABLET PO SCH (08:00)
[2020-12-03] MEDS: MIDODRINE HCL 5MG TABLET PO SCH ×3 (08:00→16:39)
[2020-12-03] MEDS: ENOXAPARIN 100MG/ML SYR SUBCUT SCH ×2 (08:01→20:05)
[2020-12-03] MEDS: NYSTATIN POWDER 15GM TOP SCH ×2 (08:02→20:05)
[2020-12-03 08:25] VITALS: BP 109/68
[2020-12-03 10:10] LABS: CHLORIDE 107 mEq/L (98-107)
[2020-12-03 10:12] LABS: BASOPHILS % 3.1 % (0.0-2.0); EOSINOPHILS % 7.2 % (0.0-5.0); HEMATOCRIT. 32.9 % (36.0-48.0); HEMOGLOBIN. 11.2 g/dL (12.0-16.0); LYMPHOCYTES % 38.2 % (20.0-50.0); MEAN CORPUSCULAR HEMOGLOBIN 31.1 pg (28.0-32.0); MEAN CORPUSCULAR VOLUME 91.4 fL (81.0-99.0); MEAN PLATELET VOLUME 7.8 fl (7.4-10.4); MONOCYTES % 7.7 % (2.0-8.0); NEUTROPHILS % 43.8 % (40.0-76.0); PLATELET 568 x1000/uL (130-400); RED CELL DISTRIBUTION WIDTH 15.3 % (11.6-14.6)
[2020-12-03] MEDS ORDERED: LEVO50TA8 PO (15:25)
[2020-12-03] MEDS ORDERED: GABA-532 PO (15:25)
[2020-12-03] MEDS ORDERED: APIX5TAB MT (15:25)
[2020-12-03] MEDS ORDERED: OXYB5TAB16 PO (15:25)
[2020-12-03] MEDS ORDERED: HYDR-4009 PO (15:25)
[2020-12-03] MEDS ORDERED: DULO60CA44 PO (15:25)
[2020-12-03] MEDS ORDERED: MIDO5TAB4 PO (15:25)
[2020-12-03] MEDS ORDERED: DOCU-150 PO (15:25)
[2020-12-03] MEDS: DOCUSATE SODIUM 100MG CAPSULE PO SCH (18:32)
[2020-12-03 20:00] VITALS: BP 101/64
[2020-12-04] MEDS: GABAPENTIN 300MG CAPSULE PO SCH ×2 (05:55→13:25)
[2020-12-04] MEDS: LEVOTHYROXINE SODIUM 50MCG TABLET PO SCH (06:00)
[2020-12-04] MEDS: FAMOTIDINE 20MG TABLET PO SCH (06:00)
[2020-12-04 08:00] VITALS: BP 115/75
[2020-12-04] MEDS: CHOLECALCIFEROL (D3) 1000 UNIT TABLET PO SCH (08:38)
[2020-12-04] MEDS: OXYBUTYNIN CHLORIDE 5MG TABLET PO SCH (08:38)
[2020-12-04] MEDS: DULOXETINE HCL 60MG DR CAPSULE PO SCH (08:38)
[2020-12-04] MEDS: MIDODRINE HCL 5MG TABLET PO SCH ×2 (08:39→13:25)
[2020-12-04] MEDS: FOLIC ACID/VITAMIN B COMP W-C TABLET PO SCH (08:39)
[2020-12-04] MEDS: MAGNESIUM OXIDE 400MG TABLET PO SCH (08:39)
[2020-12-04] MEDS: FERROUS SULFATE 325MG TABLET PO SCH (08:39)
[2020-12-04] MEDS: ENOXAPARIN 100MG/ML SYR SUBCUT SCH (08:40)
[2020-12-04] MEDS: NYSTATIN POWDER 15GM TOP SCH (08:46)
[2020-12-04] MEDS: HYDROCODONE/ACETAMINOPHEN 10/325MG TABLET PO PRN (08:52)
[2020-12-04 11:46] VITALS: BP 115/75
== END 2020-12-04 16:25 | disposition home health service (06) | DRG 563 ==
PROVIDERS: ADMIT Psychiatry & Neurology Neurology; ATTEND Internal Medicine
DX: S82.142A Displaced bicondylar fracture of left tibia, initial encounter for closed fracture (principal); I82.511 Chronic embolism and thrombosis of right femoral vein; E44.0 Moderate protein-calorie malnutrition; F33.1 Major depressive disorder, recurrent, moderate; I82.532 Chronic embolism and thrombosis of left popliteal vein; E11.9 Type 2 diabetes mellitus without complications; I11.9 Hypertensive heart disease without heart failure; J44.9 Chronic obstructive pulmonary disease, unspecified; K74.60 Unspecified cirrhosis of liver; W18.30XA Fall on same level, unspecified, initial encounter; E66.9 Obesity, unspecified; E87.5 Hyperkalemia; E87.8 Other disorders of electrolyte and fluid balance, not elsewhere classified; F41.9 Anxiety disorder, unspecified; I10 Essential (primary) hypertension; I27.20 Pulmonary hypertension, unspecified; G89.29 Other chronic pain; M54.9 Dorsalgia, unspecified; I95.9 Hypotension, unspecified; M71.22 Synovial cyst of popliteal space [Baker], left knee; Y92.002 Bathroom of unspecified non-institutional (private) residence as the place of occurrence of the external cause; Z86.73 Personal history of transient ischemic attack (TIA), and cerebral infarction without residual deficits; Z87.891 Personal history of nicotine dependence; Z68.30 Body mass index [BMI] 30.0-30.9, adult
CPT/HCPCS: 36415; 73560; 80048; 82962; 83735; 85025; 92523; 97110; 97116; 97162; 97166; 97530; 97535; J1650

== ENCOUNTER 2021-02-17 15:17 | Emergency (ER) | payer MEDICARE, MEDICAID ==
[~2021-02-17] VITALS: Ht 165.1 cm; Wt 82.0 kg
[~2021-02-17 15:17] MED LIST changes: +DOCU-150 PO; +DULO60CA44 PO; -FURO80TA3 MT; +GABA-532 PO; +HYDR-4009 PO; +LEVO50TA8 PO; +MIDO5TAB4 PO; +OXYB5TAB16 PO
[2021-02-17 15:19] VITALS: BP 115/75
[2021-02-17] MEDS ORDERED: METHYLPREDNISOLONE SOD SUCC 125 MG/2 ML VIAL IV STA (16:10)
[2021-02-17] MEDS ORDERED: IPRATROPIUM BROMIDE (0.02%) 0.5MG/2.5ML NEB HHN STA (16:10)
[2021-02-17] MEDS ORDERED: ALBUTEROL (0.083%) 2.5MG/3ML NEB HHN STA (16:10)
== END 2021-02-17 17:27 | disposition left against medical advice (07) ==
LOC: ER 15:17
DX: J44.1 Chronic obstructive pulmonary disease with (acute) exacerbation (principal); R00.0 Tachycardia, unspecified; I25.2 Old myocardial infarction
CPT/HCPCS: 71045; 93005; 99283

== ENCOUNTER 2021-04-15 03:33 | Inpatient (IN) | payer MEDICARE, MEDICAID ==
[~2021-04-15] VITALS: Ht 175.3 cm; Wt 93.5 kg
[~2021-04-15 03:33] MED LIST changes: +CHOL-36; -CHOL100044
[2021-04-15] MEDS ORDERED: SODIUM CHLORIDE 0.9% 1,000 ML IV ONE (04:15)
[2021-04-15 04:34] LABS: BASOPHILS % 1.7 % (0.0-2.0); EOSINOPHILS % 4.4 % (0.0-5.0); HEMATOCRIT. 36.6 % (36.0-48.0); HEMOGLOBIN. 12.5 g/dL (12.0-16.0); LYMPHOCYTES % 51.5 % (20.0-50.0); MEAN CORPUSCULAR HEMOGLOBIN 31.4 pg (28.0-32.0); MONOCYTES % 8.4 % (2.0-8.0); PLATELET 246 x1000/uL (130-400); RED BLOOD CELL COUNT 3.97 mill/uL (4.2-5.4)
[2021-04-15 04:44] LABS: CHLORIDE 104 mEq/L (98-107)
[2021-04-15 05:10] LABS: CLARITY URINE CLEAR (CLEAR); COLOR URINE YELLOW (YELLOW); KETONES URINE NEGATIVE (NEGATIVE); LEUKOCYTE ESTERASE URINE NEGATIVE (NEGATIVE); NITRITE URINE NEGATIVE (NEGATIVE); OCCULT BLOOD URINE NEGATIVE (NEGATIVE); PH URINE 6.5 (4.5-8.0); PROTEIN URINE NEGATIVE (NEGATIVE); SPECIFIC GRAVITY URINE 1.004 (1.005-1.030); UROBILINOGEN URINE 0.2 E.U./dL (0.2-1.0)
[2021-04-15 05:18] LABS: CREATINE KINASE 159 IU/L (26-192)
[2021-04-15] MEDS ORDERED: POTASSIUM CHLORIDE 20MEQ TABLET SR PO NR (06:00)
[2021-04-15] MEDS ORDERED: CEFTRIAXONE 1 G PREMIX 50 ML IV ONE (06:30)
[2021-04-15] MEDS ORDERED: VANCOMYCIN 1 G PREMIX 200 ML IV SCH (06:45)
[2021-04-15] MEDS ORDERED: AZITHROMYCIN 500 MG in DEXT 5% WATER 250 ML IV SCH (07:30)
[2021-04-15] MEDS ORDERED: IOHEXOL-350 100 ML BOTTLE ONE (07:36)
[2021-04-15] MEDS ORDERED: IPRATROPIUM/ALBUTEROL 0.5-3(2.5)MG/3ML NEB HHN PRN (09:45)
[2021-04-15] MEDS: ONDANSETRON HCL 4MG/2ML INJ IV PRN ×2 (12:38→19:17)
[2021-04-15] MEDS: LEVOFLOXACIN 500MG PREMIX 100 ML IV SCH (12:39)
[2021-04-15] MEDS ORDERED: ENOXAPARIN 40MG/0.4ML SYR SUBCUT SCH (18:00)
[2021-04-15] MEDS: VANCOMYCIN 1 G PREMIX 200 ML IV SCH (20:09)
[2021-04-16] VITALS (7 sets, daily range): BP systolic 121–148; BP diastolic 72–87
[2021-04-16] MEDS ORDERED: HYDR-4001 PO (03:14)
[2021-04-16] MEDS ORDERED: ASPI-1497 PO (03:14)
[2021-04-16] MEDS: VANCOMYCIN 1 G PREMIX 200 ML IV SCH ×2 (06:41→17:18)
[2021-04-16] MEDS: ACETAMINOPHEN 325MG TABLET PO PRN ×2 (09:10→17:33)
[2021-04-16] MEDS ORDERED: INFLUENZA VACCINE 05/PF 0.5 ML SYRINGE IM ONE (10:00)
[2021-04-16] MEDS: LEVOFLOXACIN 500MG PREMIX 100 ML IV SCH (12:57)
[2021-04-16] MEDS: ENOXAPARIN 30MG/0.3ML SYR SUBCUT SCH (21:31)
[2021-04-17] VITALS: BP 148/94
[2021-04-17] MEDS: ACETAMINOPHEN 325MG TABLET PO PRN (02:13)
[2021-04-17 04:00] VITALS: BP 125/72
[2021-04-17 06:06] LABS: CHLORIDE 107 mEq/L (98-107)
[2021-04-17] MEDS: VANCOMYCIN 1 G PREMIX 200 ML IV SCH (06:07)
[2021-04-17 06:15] LABS: VANCOMYCIN TROUGH 13.2 ug/mL (5.0-10.0)
[2021-04-17 08:00] VITALS: BP 132/83
[2021-04-17] MEDS: ENOXAPARIN 30MG/0.3ML SYR SUBCUT SCH (09:02)
[2021-04-17 09:43] VITALS: BP 132/83
[2021-04-17] MEDS ORDERED: HYDR-4001 MT (10:12)
== END 2021-04-17 11:20 | disposition home or self-care (01) | DRG 602 ==
LOC: ER 03:33 → MICUSO 06:34 → 6WST 22:25
PROVIDERS: ADMIT Internal Medicine; ATTEND Internal Medicine
DX: L03.116 Cellulitis of left lower limb (principal); J18.9 Pneumonia, unspecified organism; E44.1 Mild protein-calorie malnutrition; J44.0 Chronic obstructive pulmonary disease with (acute) lower respiratory infection; M06.9 Rheumatoid arthritis, unspecified; M19.90 Unspecified osteoarthritis, unspecified site; I50.9 Heart failure, unspecified; I11.0 Hypertensive heart disease with heart failure; M79.7 Fibromyalgia; K74.60 Unspecified cirrhosis of liver; E87.6 Hypokalemia; Z96.652 Presence of left artificial knee joint; E66.9 Obesity, unspecified; Z20.822 Contact with and (suspected) exposure to COVID-19; K76.0 Fatty (change of) liver, not elsewhere classified; L30.8 Other specified dermatitis; D89.89 Other specified disorders involving the immune mechanism, not elsewhere classified; Z90.49 Acquired absence of other specified parts of digestive tract; Z79.899 Other long term (current) drug therapy; Z98.84 Bariatric surgery status; Z98.891 History of uterine scar from previous surgery; Z99.81 Dependence on supplemental oxygen; Z71.3 Dietary counseling and surveillance; Z68.30 Body mass index [BMI] 30.0-30.9, adult; Z86.718 Personal history of other venous thrombosis and embolism
CPT/HCPCS: 36415; 71045; 71275; 80048; 80053; 80202; 81003; 82550; 83605; 83880; 84145; 84484; 85025; 87426; 90686; 93005; 93971; 97162; 99285; J0456; J0696; J1650; J1956; J2405; J3370; J7030; J7040; J7060; Q9967

== ENCOUNTER 2021-05-28 23:17 | Emergency (ER) | payer MEDICARE, MEDICAID ==
[~2021-05-28] VITALS: Ht 170.2 cm; Wt 106.0 kg
[~2021-05-28 23:17] MED LIST changes: +ASPI-1497 PO; -DOCU100C57 PO; -DULO60CA64 MT; +HYDR-4001 MT; +HYDR-4001 PO; -LEVO50TA8 MT; -OXYB5TAB17 PO
[2021-05-29 00:13] LABS: BASOPHILS % 2.7 % (0.0-2.0); EOSINOPHILS % 2.2 % (0.0-5.0); HEMATOCRIT. 38.2 % (36.0-48.0); HEMOGLOBIN. 12.7 g/dL (12.0-16.0); LYMPHOCYTES % 45.4 % (20.0-50.0); MEAN CORPUSCULAR HEMOGLOBIN 29.9 pg (28.0-32.0); MEAN CORPUSCULAR VOLUME 90.3 fL (81.0-99.0); MEAN PLATELET VOLUME 8.7 fl (7.4-10.4); MONOCYTES % 7.9 % (2.0-8.0); NEUTROPHILS % 41.8 % (40.0-76.0); PLATELET 198 x1000/uL (130-400); RED BLOOD CELL COUNT 4.24 mill/uL (4.2-5.4); RED CELL DISTRIBUTION WIDTH 15.8 % (11.6-14.6)
[2021-05-29 00:38] LABS: CHLORIDE 104 mEq/L (98-107)
[2021-05-29] MEDS ORDERED: IOHEXOL-350 100 ML BOTTLE ONE (02:05)
[2021-05-29] MEDS ORDERED: KETOROLAC 60MG/2ML VIAL IM ONE (02:15)
[2021-05-29 03:54] VITALS: BP 117/67
== END 2021-05-29 03:54 | disposition home or self-care (01) ==
LOC: ER 23:17
DX: R60.0 Localized edema (principal); I11.0 Hypertensive heart disease with heart failure; I50.9 Heart failure, unspecified; Z98.890 Other specified postprocedural states; Z79.899 Other long term (current) drug therapy
CPT/HCPCS: 36415; 71275; 80053; 83880; 84484; 85025; 85379; 93005; 93970; 96372; 99285; J1885; Q9967

== ENCOUNTER 2021-06-16 21:07 | Emergency (ER) | payer MEDICARE, MEDICAID ==
[~2021-06-16] VITALS: Ht 157.5 cm; Wt 91.0 kg
[2021-06-16] MEDS ORDERED: ASPIRIN 325MG TABLET PO ONE (21:45)
[2021-06-16 22:21] LABS: BASOPHILS % 2.8 % (0.0-2.0); EOSINOPHILS % 3.9 % (0.0-5.0); HEMATOCRIT. 41.8 % (36.0-48.0); HEMOGLOBIN. 13.9 g/dL (12.0-16.0); LYMPHOCYTES % 40.4 % (20.0-50.0); MEAN CORPUSCULAR HEMOGLOBIN 29.4 pg (28.0-32.0); MEAN CORPUSCULAR VOLUME 88.6 fL (81.0-99.0); MEAN PLATELET VOLUME 8.1 fl (7.4-10.4); MONOCYTES % 3.9 % (2.0-8.0); PLATELET 321 x1000/uL (130-400); RED BLOOD CELL COUNT 4.72 mill/uL (4.2-5.4)
[2021-06-16 22:25] LABS: CHLORIDE 107 mEq/L (98-107)
[2021-06-16] MEDS ORDERED: MIDODRINE HCL 5MG TABLET PO ONE (23:45)
[2021-06-16] MEDS ORDERED: SODIUM CHLORIDE 0.9% 500 ML IV ONE (23:45)
[2021-06-17 03:05] LABS: CLARITY URINE CLEAR (CLEAR); COLOR URINE YELLOW (YELLOW); KETONES URINE NEGATIVE (NEGATIVE); LEUKOCYTE ESTERASE URINE NEGATIVE (NEGATIVE); NITRITE URINE NEGATIVE (NEGATIVE); OCCULT BLOOD URINE 1+ (NEGATIVE); PROTEIN URINE NEGATIVE (NEGATIVE); SPECIFIC GRAVITY URINE 1.005 (1.005-1.030); UROBILINOGEN URINE 0.2 E.U./dL (0.2-1.0)
[2021-06-17 03:07] VITALS: BP 115/74
== END 2021-06-17 03:09 | disposition home or self-care (01) ==
LOC: ER 21:07
DX: R55 Syncope and collapse (principal); J44.1 Chronic obstructive pulmonary disease with (acute) exacerbation; I50.9 Heart failure, unspecified; Z79.899 Other long term (current) drug therapy
CPT/HCPCS: 36415; 71045; 73030; 80053; 81003; 83880; 84484; 85025; 93005; 96360; 99285; J7040